=== PATIENT | female | born 1970 | race American Indian/Alaskan Native ===

== ENCOUNTER 2017-06-01 00:12 | Emergency (ER) | payer SELFPAY ==
[2017-06-01] MEDS ORDERED: TYLENOL PO ONE (04:35)
[2017-06-01] MEDS ORDERED: TYLENOL ONE (04:36)
--- NOTE | 2017-06-01 05:06 | XRay Report ---
FINAL REPORT PROCEDURE: XR CHEST ROUTINE 2V TECHNIQUE: PA and lateral chest radiographs were obtained. CPT 65064 HISTORY: shortness of breath COMPARISON: No prior studies are available for comparison. FINDINGS: Heart: Normal. Mediastinum/Vessels: Normal. Lungs/Pleural space: Normal. Bony thorax: No acute osseous abnormality. Other: IMPRESSION: Normal examination.
[2017-06-01 05:12] LABS: Hematocrit 39.7 % (30.3-42.9); Hemoglobin 13.4 gm/dl (10.1-14.3); Mean Corpuscular HGB Conc 34 % (30-34); Mean Corpuscular Hemoglobin 31 pg (28-32); Mean Corpuscular Volume 92 fl (79-97); Platelet Count 182 K/mm3 (140-440); Red Blood Count 4.32 M/mm3 (3.65-5.03); Red Cell Distribution Width 15.1 % (13.2-15.2)
[2017-06-01 05:17] LABS: BUN/Creatinine Ratio 13; Blood Urea Nitrogen 10 mg/dL (7-17); Calcium 8.5 mg/dL (8.4-10.2); Hemolysis Index 6
[2017-06-01 06:09] LABS: Band Neutrophils # (Manual) 0.2 K/mm3; Basophils % (Manual) 0 % (0.0-1.8); Eosinophils % (Manual) 0 % (0.0-4.3); Total Cells Counted 100
[2017-06-01 06:10] LABS: Platelet Estimate Consistent w Auto
--- NOTE | 2017-06-01 06:45 | Emergency Department Report ---
ED General Adult HPI - General Chief complaint: Chest Pain Stated complaint: COUGH,DIZZY,CONSTIPATION Time Seen by Provider: 06/01/17 06:43 Source: patient Mode of arrival: Ambulatory Limitations: No Limitations - History of Present Illness Initial comments: Patient complains of somewhat diffuse symptoms since Wednesday. Her principal complaint is cough which is generally nonproductive but sometimes produce brown and nonbloody sputum.. She did not know she had a fever. She has had no chills. She does not complain of chest pain or pain on cough. She is not short of breath. She states that her entire body some but feels sore when she coughs to include her entire abdomen. However when she is not coughing she does not complain of any abdominal pain. She states that she hasn't had much bowel movement since Wednesday. Had no diarrhea. She denies leg pain. She denies any recent travel. She denies any chronic medical problems or history. She also denies family history of coronary artery disease and venous thromboembolism.. -: Gradual, days(s) Location: abdomen (only on cough) Radiation: non-radiation Severity scale (0 -10): 5 Quality: aching Consistency: intermittent, now resolved Improves with: none Worsens with: none Associated Symptoms: denies other symptoms, cough, weakness - Related Data Previous Rx's Medication Instructions Recorded Last Taken Type Sulfamethoxazole/Trimethoprim 1 each PO BID #14 tablet 06/01/17 Unknown Rx [Bactrim DS TAB] Allergies Allergy/AdvReac Type Severity Reaction Status Date / Time Cephalosporins Allergy Hives Verified 06/01/17 04:35 bee sting Allergy Swelling Uncoded 06/01/17 04:35 ED Review of Systems ROS: Stated complaint: COUGH,DIZZY,CONSTIPATION Other details as noted in HPI Constitutional: weakness. denies: chills, fever Eyes: denies: eye pain, eye discharge, vision change ENT: denies: ear pain, throat pain Respiratory: cough. denies: shortness of breath, wheezing Cardiovascular: denies: chest pain, palpitations Endocrine: no symptoms reported Gastrointestinal: denies: abdominal pain, nausea, diarrhea Genitourinary: denies: urgency, dysuria, discharge Musculoskeletal: arthralgia, myalgia. denies: back pain, joint swelling Skin: denies: rash, lesions Neurological: denies: headache, weakness, paresthesias Psychiatric: denies: anxiety, depression Hematological/Lymphatic: denies: easy bleeding, easy bruising ED Past Medical Hx - Past Medical History Previous Medical History?: Yes - Surgical History Past Surgical History?: No - Social History Smoking Status: Never Smoker Substance Use Type: None - Medications Home Medications: Home Medications Medication Instructions Recorded Confirmed Last Taken Type Sulfamethoxazole/Trimethoprim 1 each PO BID #14 tablet 06/01/17 Unknown Rx [Bactrim DS TAB] ED Physical Exam - General Limitations: No Limitations General appearance: alert, in no apparent distress, other (looks a bit volume depleted) - Head Head exam: Present: atraumatic, normocephalic - Eye Eye exam: Present: normal appearance, PERRL, EOMI. Absent: scleral icterus - ENT ENT exam: Present: mucous membranes moist - Neck Neck exam: Present: normal inspection. Absent: tenderness, meningismus - Respiratory Respiratory exam: Present: normal lung sounds bilaterally. Absent: respiratory distress - Cardiovascular Cardiovascular Exam: Present: regular rate, normal rhythm. Absent: systolic murmur, diastolic murmur, rubs, gallop - GI/Abdominal GI/Abdominal exam: Present: soft, normal bowel sounds. Absent: distended, tenderness, guarding, rebound, rigid - Extremities Exam Extremities exam: Present: normal inspection, normal capillary refill. Absent: full ROM, tenderness, pedal edema, joint swelling, calf tenderness - Back Exam Back exam: Present: normal inspection. Absent: CVA tenderness (R), CVA tenderness (L) - Neurological Exam Neurological exam: Present: alert, oriented X3, CN II-XII intact. Absent: motor sensory deficit - Psychiatric Psychiatric exam: Present: normal affect, normal mood - Skin Skin exam: Present: warm, dry, intact, normal color. Absent: rash ED Course Vital Signs 06/01/17 06/01/17 04:22 04:40 Temperature 100.4 F H Pulse Rate 69 Respiratory 18 18 Rate Blood Pressure 110/87 O2 Sat by Pulse 100 Oximetry - Reevaluation(s) Reevaluation #1: Patient is given a liter of IV fluid. She states she felt much better. On reexamination she had no abdominal pain whatsoever. She appears have a viral illness. She is appropriate for outpatient follow-up and will be referred. 06/01/17 09:37 ED Medical Decision Making - Lab Data Result diagrams: 06/01/17 04:45 06/01/17 04:45 Laboratory Results - last 24 hr 06/01/17 06/01/17 06/01/17 04:45 04:45 05:48 WBC 4.1 L RBC 4.32 Hgb 13.4 Hct 39.7 MCV 92 MCH 31 MCHC 34 RDW 15.1 Plt Count 182 [place] % (Auto) Email Production Specialist Add Manual Diff Complete Total Counted 100 Seg Neuts % (Manual) 79.0 H Band Neutrophils % 6.0 Lymphocytes % (Manual) 11.0 L Reactive Lymphs % (Man) 0 Monocytes % (Manual) 4.0 Eosinophils % (Manual) 0 Basophils % (Manual) 0 Metamyelocytes % 0 Myelocytes % 0 Promyelocytes % 0 Blast Cells % 0 Nucleated RBC % Not Reportable Seg Neutrophils # Man 3.2 Band Neutrophils # 0.2 Lymphocytes # (Manual) 0.5 L Abs React Lymphs (Man) 0.0 Monocytes # (Manual) 0.2 Eosinophils # (Manual) 0.0 Basophils # (Manual) 0.0 Metamyelocytes # 0.0 Myelocytes # 0.0 Promyelocytes # 0.0 Blast Cells # 0.0 WBC Morphology Not Reportable Hypersegmented Neuts Not Reportable Hyposegmented Neuts Not Reportable Hypogranular Neuts Not Reportable Smudge Cells Not Reportable Toxic Granulation Not Reportable Toxic Vacuolation Not Reportable Dohle Bodies Not Reportable Pelger-Huet Anomaly Not Reportable Moustapha Rods Not Reportable Platelet Estimate Consistent w auto Clumped Platelets Not Reportable Plt Clumps, EDTA Not Reportable Large Platelets Not Reportable Giant Platelets Not Reportable Platelet Satelliting Not Reportable Plt Morphology Comment Not Reportable RBC Morphology Not Reportable Dimorphic RBCs Not Reportable Polychromasia Not Reportable Hypochromasia Not Reportable Poikilocytosis Not Reportable Anisocytosis Not Reportable Microcytosis Not Reportable Macrocytosis Not Reportable Spherocytes Not Reportable Pappenheimer Bodies Not Reportable Sickle Cells Not Reportable Target Cells Not Reportable Tear Drop Cells Not Reportable Ovalocytes Not Reportable Helmet Cells Not Reportable [place] Bodies Not Reportable [place] Rings Not Reportable Manan Cells Not Reportable Bite Cells Not Reportable Crenated Cell Not Reportable Elliptocytes Not Reportable Acanthocytes (Spur) Not Reportable Rouleaux Not Reportable Hemoglobin C Crystals Not Reportable Schistocytes Not Reportable Malaria parasites Not Reportable Cristino Bodies Not Reportable Hem Pathologist Commnt No PT INR APTT Sodium 137 Potassium 3.8 Chloride 99.7 Carbon Dioxide 24 Anion Gap 17 BUN 10 Creatinine 0.8 Estimated GFR > 60 BUN/Creatinine Ratio 13 Glucose 121 H Lactic Acid Calcium 8.5 Magnesium Total Bilirubin Direct Bilirubin Indirect Bilirubin AST ALT Alkaline Phosphatase Total Creatine Kinase 191 H CK-MB (CK-2) < 1.0 CK-MB (CK-2) Rel Index 0.5 Troponin T < 0.010 Total Protein Albumin Albumin/Globulin Ratio 06/01/17 06/01/17 06/01/17 06:57 06:57 06:57 WBC RBC Hgb Hct MCV MCH MCHC RDW Plt Count [place] % (Auto) Add Manual Diff Total Counted Seg Neuts % (Manual) Band Neutrophils % Lymphocytes % (Manual) Reactive Lymphs % (Man) Monocytes % (Manual) Eosinophils % (Manual) Basophils % (Manual) Metamyelocytes % Myelocytes % Promyelocytes % Blast Cells % Nucleated RBC % Seg Neutrophils # Man Band Neutrophils # Lymphocytes # (Manual) Abs React Lymphs (Man) Monocytes # (Manual) Eosinophils # (Manual) Basophils # (Manual) Metamyelocytes # Myelocytes # Promyelocytes # Blast Cells # WBC Morphology Hypersegmented Neuts Hyposegmented Neuts Hypogranular Neuts Smudge Cells Toxic Granulation Toxic Vacuolation Dohle Bodies Pelger-Huet Anomaly Moustapha Rods Platelet Estimate Clumped Platelets Plt Clumps, EDTA Large Platelets Giant Platelets Platelet Satelliting Plt Morphology Comment RBC Morphology Dimorphic RBCs Polychromasia Hypochromasia Poikilocytosis Anisocytosis Microcytosis Macrocytosis Spherocytes Pappenheimer Bodies Sickle Cells Target Cells Tear Drop Cells Ovalocytes Helmet Cells [place] Bodies [place] Rings Grady Cells Bite Cells Crenated Cell Elliptocytes Acanthocytes (Spur) Rouleaux Hemoglobin C Crystals Schistocytes Malaria parasites Cristino Bodies Hem Pathologist Commnt PT 12.8 INR 0.92 APTT 30.9 Sodium Potassium Chloride Carbon Dioxide Anion Gap BUN Creatinine Estimated GFR BUN/Creatinine Ratio Glucose Lactic Acid 1.20 Calcium Magnesium 1.90 Total Bilirubin 0.20 Direct Bilirubin < 0.2 Indirect Bilirubin 0.0 AST 19 ALT 16 Alkaline Phosphatase 49 Total Creatine Kinase 192 H CK-MB (CK-2) < 1.0 CK-MB (CK-2) Rel Index 0.5 Troponin T Total Protein 6.6 Albumin 3.7 L Albumin/Globulin Ratio 1.3 - Radiology Data Radiology results: report reviewed interpreted by me: Chest x-ray showed no acute process Critical care attestation.: If time is entered above; I have spent that time in minutes in the direct care of this critically ill patient, excluding procedure time. ED Disposition Clinical Impression: Viral illness Acute bronchitis Qualifiers: Bronchitis organism: unspecified organism Qualified Code(s): J20.9 - Acute bronchitis, unspecified Disposition: - TO HOME OR SELFCARE Is pt being admited?: No Does the pt Need Aspirin: No Condition: Stable Instructions: Acute Bronchitis (ED), Abdominal Pain (ED), Constipation (ED) Additional Instructions: Increase fluids. Return any significant abdominal discomfort or if you continue to have problems with bowel movements or if there is any vomiting or nausea. Return if any shortness of breath significant fever or chills. Follow- up with a primary care provider. Increase fluids. Prescriptions: Sulfamethoxazole/Trimethoprim [Bactrim DS TAB] 1 each PO BID #14 tablet Referrals: FLASH MATT MD [Primary Care Provider] - 24 Hours [facility] [Provider Group] - 24 Hours Time of Disposition: 09:40
[2017-06-01] MEDS ORDERED: NACL 0.9% 1000 ML 1,000 ML IV ONE (06:46)
[2017-06-01 06:51] LABS: Creatine Kinase MB < 1.0 ng/mL (0.0-4.0)
[2017-06-01 07:18] LABS: INR 0.92 (0.87-1.13)
[2017-06-01 07:19] LABS: Partial Thromboplastin Time 30.9 Sec. (24.2-36.6)
[2017-06-01 07:23] LABS: Alanine Aminotransferase 16 units/L (7-56); Albumin 3.7 g/dL (3.9-5)
[2017-06-01 07:24] LABS: Bilirubin,Direct < 0.2 mg/dL (0-0.2); Creatine Kinase MB < 1.0 ng/mL (0.0-4.0)
[2017-06-01 10:11] VITALS: BP 100/64
== END 2017-06-01 10:12 | disposition home or self-care (01) ==
LOC: ED 00:12
DX: B34.9 Viral infection, unspecified (principal); J20.9 Acute bronchitis, unspecified; Z91.030 Bee allergy status; Z88.1 Allergy status to other antibiotic agents
CPT/HCPCS: 36415; 71046; 80048; 80074; 82140; 82550; 82553; 83735; 84484; 85007; 85025; 85610; 85730; 87040; 96360; 99284; J7030; 96361